=== PATIENT | female | born 1965 | race Caucasian/White ===

== ENCOUNTER 2019-04-18 23:51 | Emergency (ER) | payer OTHER ==
[~2019-04-18] VITALS: Ht 160 cm; Wt 73.0 kg
[2019-04-19] MEDS ORDERED: COZAAR50 MG PO (00:10)
[2019-04-19] MEDS ORDERED: SYNTHROID112 MCG PO (00:10)
[2019-04-19] MEDS ORDERED: FOLGARD TABLET1 EACH PO (00:10)
[2019-04-19] MEDS ORDERED: BIOTIN1 MG PO (00:10)
== END 2019-04-19 03:10 | disposition home or self-care (01) ==
LOC: ER 23:51
DX: I16.0 Hypertensive urgency (principal); I10 Essential (primary) hypertension

== ENCOUNTER → 2019-11-20 | Emergency (ER) | payer OTHER ==
[~2019-11-20] VITALS: Ht 160 cm; Wt 70.3 kg
[~2019-11-20] MED LIST: BIOTIN1 MG PO; COZAAR50 MG PO; FOLGARD TABLET1 EACH PO; SYNTHROID112 MCG PO
== END | disposition home or self-care (01) ==
LOC: ER 06:20
DX: M25.512 Pain in left shoulder (principal)

== ENCOUNTER 2020-10-25 05:42 | Emergency (ER) | payer OTHER ==
[~2020-10-25] VITALS: Ht 160 cm; Wt 74.4 kg
[2020-10-25] MEDS ORDERED: TOPROL XL25 M1 (06:09)
[2020-10-25] MEDS ORDERED: LOSARTAN-HCTZ1 EAC2 (06:09)
== END 2020-10-25 11:16 | disposition home or self-care (01) ==
LOC: ER 05:42
DX: R51.9 Headache, unspecified (principal); I10 Essential (primary) hypertension; Z03.818 Encounter for observation for suspected exposure to other biological agents ruled out

== ENCOUNTER 2021-01-30 23:52 | Emergency (ER) | payer OTHER ==
[~2021-01-30] VITALS: Ht 160 cm; Wt 73.9 kg
[~2021-01-30 23:52] MED LIST changes: +LOSARTAN-HCTZ1 EAC2; +TOPROL XL25 M1
[2021-01-31] MEDS ORDERED: BUTALB-ACETAMI1 EAC2 PO (03:34)
== END 2021-01-31 03:45 | disposition home or self-care (01) ==
LOC: ER 23:52
DX: R51.9 Headache, unspecified (principal); I10 Essential (primary) hypertension

== ENCOUNTER 2022-08-24 08:01 | Inpatient (IN) | payer OTHER ==
[~2022-08-24] VITALS: Ht 152.4 cm; Wt 73.5 kg
[~2022-08-24 08:01] MED LIST changes: +BUTALB-ACETAMI1 EAC2 PO
[2022-08-24] MEDS ORDERED: COZAAR100 MG PO (08:25)
[2022-08-24] MEDS ORDERED: SYNTHROID88 MCG PO (08:26)
--- NOTE | 2022-08-24 08:27 | NUR ---
PTE SE RECIBE AMBULANDO, ALERTA Y ORIENTADO X 3. PTE MUESTRA FOTOS CON SANGRADO EN HECES FECALES DE ANGIE. PTE VERBALIZA TENER NAUSEAS
--- NOTE | 2022-08-24 09:42 | NUR ---
PTE ALERTA Y ORIENTADA X3 EN POLO CON BARANDAS ELEVADAS POR SEGURIDAD. SE ORIENTA SOBRE TRATAMIENTO MEDICO. SE REALIZAN LABS SVITLANA ORDEN MEDICA Y BAJO MEDIDAS ASEPTICAS. SE ADMINSITRA MEDICAMENTO SVITLANA ORDEN MEDICA. PTE ASISTIDA POR RN AKANKSHA.
== END 2022-08-30 21:34 | disposition home or self-care (01) | DRG 371 ==
LOC: ER 08:01 → SEC-K 21:08 → MEDJ 08-26 04:54
PROVIDERS: ADMIT Internal Medicine; ATTEND Internal Medicine
PROC: BW21YZZ Computerized Tomography (CT Scan) of Abdomen and Pelvis using Other Contrast (ICD-10-PCS; principal; 2022-08-24)
DX: A04.72 Enterocolitis due to Clostridium difficile, not specified as recurrent (principal); K29.01 Acute gastritis with bleeding; E87.6 Hypokalemia; I10 Essential (primary) hypertension; E03.9 Hypothyroidism, unspecified; Z20.822 Contact with and (suspected) exposure to COVID-19

== ENCOUNTER 2024-11-09 22:11 | Emergency (ER) | payer OTHER ==
[~2024-11-09] VITALS: Ht 160 cm; Wt 74.8 kg
[~2024-11-09 22:11] MED LIST changes: +COZAAR100 MG PO; +SYNTHROID88 MCG PO
[2024-11-09] MEDS ORDERED: CLONIDINE HCL 0.1 MG TABLET PO ONE (22:45)
[2024-11-09 23:10] LABS: HEMATOCRIT 34.3 % (36.0-45.00); HEMOGLOBIN 11.4 g/dL (12.0-15.00); MEAN CELL VOLUME 90.8 fL (80.00-100.00); MEAN CORPUSCULAR HEMOGLOBIN 30.1 pg (27.00-32.0); MEAN CORPUSCULAR HGB CONC 33.2 g/dl (32.0-36.0); PLATELET COUNT 343 K/uL (150-450); RED BLOOD COUNT 3.78 M/uL (4.00-6.00); RED CELL DISTRIBUTION WIDTH 13.1 % (11.5-14.5)
[2024-11-09 23:27] LABS: CALCIUM 8.6 mg/dL (8.5-10.1); CREATININE SERUM 0.83 mg/dL (0.55-1.02); GFR 70.86; POTASSIUM 3.86 mEq/L (3.5-5.1)
== END 2024-11-10 00:27 | disposition home or self-care (01) ==
LOC: ER 22:13
PROVIDERS: General Practice
DX: I10 Essential (primary) hypertension (principal); Z88.6 Allergy status to analgesic agent; Z88.0 Allergy status to penicillin